=== PATIENT | male | born 1955 | race African-American/Black ===

== ENCOUNTER 2020-05-26 13:39 | Emergency (ER) | payer MEDICARE, MEDICAID ==
[~2020-05-26] VITALS: Ht 190.5 cm; Wt 82.0 kg
[2020-05-26 14:17] LABS: HEMATOCRIT. 25.7 % (42.0-52.0); HEMOGLOBIN. 8.5 g/dL (14.0-18.0); MEAN CORPUSCULAR HEMOGLOBIN 32.5 pg (28.0-32.0); MEAN CORPUSCULAR VOLUME 98.8 fL (80.0-94.0); MEAN PLATELET VOLUME 8.2 fl (7.4-10.4); PLATELET 536 x1000/uL (130-400); RED CELL DISTRIBUTION WIDTH 18.9 % (11.6-14.6)
[2020-05-26 14:21] LABS: CHLORIDE 103 mEq/L (98-107); INR 1.2; PROTHROMBIN TIME 12.5 sec (9.6-11.0)
[2020-05-26 14:26] LABS: ETHANOL BLOOD < 10 mg/dL
[2020-05-26 14:38] LABS: ATYPICAL LYMPHOCYTES 1; PLATELET ESTIMATE INCREASED
[2020-05-26] MEDS ORDERED: SODIUM CHLORIDE 0.9% 1,000 ML IV ONE ×2 (15:00→16:09)
[2020-05-26] MEDS ORDERED: MORPHINE SULFATE 4 MG/ML CPJ (NOT FOR IM USE) IV STA (16:09)
[2020-05-26] MEDS ORDERED: ONDANSETRON HCL 4MG/2ML INJ IV STA (16:09)
[2020-05-26 18:00] VITALS: BP 112/73
== END 2020-05-26 19:27 | disposition home or self-care (01) ==
LOC: ER 13:39
DX: T50.7X1A Poisoning by analeptics and opioid receptor antagonists, accidental (unintentional), initial encounter (principal); C22.8 Malignant neoplasm of liver, primary, unspecified as to type; R41.82 Altered mental status, unspecified; R00.0 Tachycardia, unspecified; Z85.46 Personal history of malignant neoplasm of prostate; Y92.89 Other specified places as the place of occurrence of the external cause
CPT/HCPCS: 36415; 80053; 80307; 80320; 80329; 82140; 83690; 85025; 85610; 93005; 96361; 96374; 96375; 99284; J2270; J2405; J7030; G0480

== ENCOUNTER 2020-06-07 14:07 | Inpatient (IN) | payer MEDICARE, MEDICAID ==
[~2020-06-07] VITALS: Ht 188 cm; Wt 84.8 kg
[2020-06-07] MEDS ORDERED: MORPHINE SULFATE 4 MG/ML CPJ (NOT FOR IM USE) IV STA ×3 (14:37→20:22)
[2020-06-07] MEDS ORDERED: ONDANSETRON HCL 4MG/2ML INJ IV STA ×3 (14:37→20:22)
[2020-06-07 15:26] LABS: HEMATOCRIT. 25.2 % (42.0-52.0); HEMOGLOBIN. 8.8 g/dL (14.0-18.0); MEAN PLATELET VOLUME 8.4 fl (7.4-10.4); PLATELET 647 x1000/uL (130-400); RED CELL DISTRIBUTION WIDTH 17.1 % (11.6-14.6)
[2020-06-07 15:31] LABS: CHLORIDE 99 mEq/L (98-107)
[2020-06-07 15:34] LABS: INR 1.2; PROTHROMBIN TIME 12.3 sec (9.6-11.0)
[2020-06-07 15:35] LABS: ETHANOL BLOOD < 10 mg/dL
[2020-06-07] MEDS ORDERED: DEXTROSE 50% WATER 50ML SYRINGE IV ONE (16:00)
[2020-06-07] MEDS ORDERED: CALCIUM GLUCONATE 1,000 MG in DEXT 5% WATER 100 ML IV ONE (16:00)
[2020-06-07] MEDS ORDERED: SODIUM BICARBONATE 8.4% 1 MEQ/ML 50ML SYR IV ONE (16:00)
[2020-06-07] MEDS ORDERED: INSULIN REGULAR (HUMULIN R) 300UNITS/3ML IV ONE (16:00)
[2020-06-07 16:08] LABS: CLARITY URINE CLEAR (CLEAR); COLOR URINE DARK YELLOW (YELLOW); KETONES URINE NEGATIVE (NEGATIVE); LEUKOCYTE ESTERASE URINE TRACE (NEGATIVE); NITRITE URINE NEGATIVE (NEGATIVE); OCCULT BLOOD URINE NEGATIVE (NEGATIVE); PROTEIN URINE 1+ (NEGATIVE); SPECIFIC GRAVITY URINE 1.017 (1.005-1.030); UROBILINOGEN URINE 0.2 E.U./dL (0.2-1.0)
[2020-06-07 16:19] LABS: *AMPHETAMINES SCREEN URINE NEGATIVE (NEGATIVE); *BARBITURATES SCREEN URINE NEGATIVE (NEGATIVE)
[2020-06-07 16:20] LABS: *BENZODIAZEPINES SCREEN URINE NEGATIVE (NEGATIVE); *COCAINE SCREEN URINE NEGATIVE (NEGATIVE); METHADONE URINE SCREEN NEGATIVE (NEGATIVE); OPIATES URINE SCREEN PRESUMTIVE POSITIVE (NEGATIVE); PHENCYCLIDINE URINE SCREEN NEGATIVE (NEGATIVE)
[2020-06-07 16:21] LABS: CANNABINOID URINE SCREEN NEGATIVE (NEGATIVE)
[2020-06-07 17:27] LABS: PLATELET ESTIMATE INCREASED
[2020-06-07] MEDS ORDERED: HYDROCODONE/ACETAMINOPHEN 10/325MG TABLET PO PRN (20:15)
[2020-06-07 23:30] VITALS: BP 125/77
[2020-06-08] VITALS (12 sets, daily range): BP systolic 102–124; BP diastolic 60–74
[2020-06-08] MEDS: DEXT 5%/0.9% NACL 1,000 ML IV SCH ×2 (00:26→10:51)
[2020-06-08] MEDS: HYDROCODONE/ACETAMINOPHEN 10/325MG TABLET PO PRN ×3 (02:34→14:07)
[2020-06-08] MEDS: ONDANSETRON HCL 4MG/2ML INJ IV PRN (06:33)
[2020-06-08 06:41] LABS: HEMATOCRIT. 23.4 % (42.0-52.0); HEMOGLOBIN. 8.2 g/dL (14.0-18.0); MEAN CORPUSCULAR HEMOGLOBIN 33.8 pg (28.0-32.0); MEAN CORPUSCULAR VOLUME 96.8 fL (80.0-94.0); MEAN PLATELET VOLUME 8.2 fl (7.4-10.4); PLATELET 575 x1000/uL (130-400); RED BLOOD CELL COUNT 2.42 mill/uL (4.7-6.1); RED CELL DISTRIBUTION WIDTH 16.8 % (11.6-14.6)
[2020-06-08] MEDS ORDERED: LOSA25TA26 MT (08:46)
[2020-06-08] MEDS ORDERED: MEGE40TA7 MT (08:46)
[2020-06-08] MEDS ORDERED: atropine sulfate SL (08:46)
[2020-06-08] MEDS ORDERED: HYDR-4009 PO (08:46)
[2020-06-08] MEDS ORDERED: DOCU-15 MT (08:46)
[2020-06-08] MEDS ORDERED: MORP10DI10 MT (08:46)
[2020-06-08] MEDS ORDERED: SULF-288 PO (08:46)
[2020-06-08] MEDS: MORPHINE SULFATE 15MG TABLET SR PO SCH ×2 (08:58→20:23)
[2020-06-08] MEDS ORDERED: SODIUM POLYSTYRENE SULFONATE 15 G/60 ML BOT PO NR (10:00)
[2020-06-08] MEDS ORDERED: MORP100S3 SL (10:18)
[2020-06-08] MEDS ORDERED: SODIUM BICARBONATE 4% (2.4MEQ) 5ML VIAL IV ONE (13:11)
[2020-06-08] MEDS ORDERED: LIDOCAINE HCL 1% 20ML VIAL (Pyxis) INJ ONE (13:11)
[2020-06-08] MEDS: SODIUM BICARBONATE 150 MEQ in DEXTROSE 5% WATER 1,000 ML IV SCH (14:05)
[2020-06-08] MEDS: HYDROMORPHONE HCL/PF 2MG/ML CPJ IV PRN ×2 (15:59→22:35)
[2020-06-08 22:22] LABS: PLATELET ESTIMATE INCREASED
[2020-06-09] VITALS (10 sets, daily range): BP systolic 101–111; BP diastolic 59–70
[2020-06-09] MEDS: ONDANSETRON HCL 4MG/2ML INJ IV PRN (00:46)
[2020-06-09] MEDS: HYDROCODONE/ACETAMINOPHEN 10/325MG TABLET PO PRN ×2 (00:59→06:02)
[2020-06-09] MEDS: HYDROMORPHONE HCL/PF 2MG/ML CPJ IV PRN ×2 (02:43→11:39)
[2020-06-09] MEDS: SODIUM BICARBONATE 150 MEQ in DEXTROSE 5% WATER 1,000 ML IV SCH (05:56)
[2020-06-09 07:25] LABS: HEMOGLOBIN. 8.3 g/dL (14.0-18.0); MEAN CORPUSCULAR HEMOGLOBIN 32.6 pg (28.0-32.0); MEAN CORPUSCULAR VOLUME 97.6 fL (80.0-94.0); MEAN PLATELET VOLUME 8.7 fl (7.4-10.4); PLATELET 599 x1000/uL (130-400); RED BLOOD CELL COUNT 2.56 mill/uL (4.7-6.1); RED CELL DISTRIBUTION WIDTH 16.9 % (11.6-14.6)
[2020-06-09] MEDS: MORPHINE SULFATE 15MG TABLET SR PO SCH (08:25)
[2020-06-09] MEDS ORDERED: HYDROMORPHONE HCL 2MG TABLET PO PRN (12:00)
[2020-06-09 16:43] LABS: PLATELET ESTIMATE INCREASED
[2020-06-09] MEDS ORDERED: MORPHINE SULFATE 30MG TABLET SR PO SCH (21:00)
[2020-06-10] MEDS ORDERED: TAMSULOSIN HCL 0.4MG SR CAPSULE PO SCH (09:00)
== END 2020-06-09 16:14 | disposition hospice, home (50) | DRG 279 ==
LOC: ER 14:07 → EDBEDREQTM 16:16 → EDBEDREQ 16:16 → 3WST 19:12 → EDBEDREQTM 19:25 → EDBEDREQ 19:25 → ENRESERV 21:50
PROVIDERS: ADMIT Internal Medicine; ATTEND Internal Medicine
PROC: 0W9G3ZZ Drainage of Peritoneal Cavity, Percutaneous Approach (ICD-10-PCS; principal; 2020-06-08)
DX: K76.7 Hepatorenal syndrome (principal); C78.7 Secondary malignant neoplasm of liver and intrahepatic bile duct; C61 Malignant neoplasm of prostate; C78.00 Secondary malignant neoplasm of unspecified lung; D64.9 Anemia, unspecified; N17.9 Acute kidney failure, unspecified; E87.1 Hypo-osmolality and hyponatremia; E87.5 Hyperkalemia; B19.20 Unspecified viral hepatitis C without hepatic coma; E43 Unspecified severe protein-calorie malnutrition; R18.8 Other ascites; Z60.2 Problems related to living alone; Z79.899 Other long term (current) drug therapy; R74.0 Nonspecific elevation of levels of transaminase and lactic acid dehydrogenase [LDH]
CPT/HCPCS: 36415; 49083; 71045; 74176; 80048; 80053; 80305; 80320; 81003; 82140; 82962; 84484; 85025; 93005; 96365; 99291; J0610; J1170; J1815; J2270; J2405; J3490; J7060; J7070; G0480